=== PATIENT | male | born 2000 | race African-American/Black ===

== ENCOUNTER 2021-12-30 17:10 | Emergency (ER) | payer BC, OTHER ==
[2021-12-30] MEDS ORDERED: Lidocaine 1% PF 2 ML SDV INJECT ONE (18:04)
[2021-12-30] MEDS ORDERED: Sulfamethoxazole/Trimethoprim 800-160 MG Tab PO STA (18:04)
[2021-12-30] MEDS ORDERED: Acetaminophen/HYDROcodone 325-5 MG Tab PO ONE (18:21)
== END 2021-12-30 18:47 | disposition home or self-care (01) ==
LOC: MW.ED 17:10
DX: L02.415 Cutaneous abscess of right lower limb (principal); Z79.899 Other long term (current) drug therapy
CPT/HCPCS: 10060; 99282; A9270; 99283

== ENCOUNTER 2024-03-22 13:17 | Emergency (ER) | payer BC ==
[2024-03-22] MEDS: Ibuprofen 600 MG Tab PO ONE (14:34)
== END 2024-03-22 14:36 | disposition home or self-care (01) ==
LOC: MW.ED 13:17
DX: S93.401A Sprain of unspecified ligament of right ankle, initial encounter (principal); S93.601A Unspecified sprain of right foot, initial encounter; X50.9XXA Other and unspecified overexertion or strenuous movements or postures, initial encounter; Z75.8 Other problems related to medical facilities and other health care
CPT/HCPCS: 73610; 73620; 99283; A9270